=== PATIENT | female | born 1965 | race Caucasian/White ===

== ENCOUNTER → 2017-11-19 | Outpatient (CLI) | payer BC | LOC: MC.RAD 08:55 | DX: Z12.31 Encounter for screening mammogram for malignant neoplasm of breast (principal) ==

== ENCOUNTER 2018-03-25 14:44 | Outpatient (CLI) | payer BC ==
[~2018-03-25] VITALS: Ht 177.8 cm; Wt 95.5 kg
[2018-03-25] MEDS ORDERED: MULTI VITAMINS1 TAB PO (14:58)
[2018-03-25 14:59] VITALS: BP 144/59; PULSE 81; TEMP 98.6
[2018-03-25] MEDS ORDERED: ZYRTEC 10MG10 MG PO (14:59)
== END 2018-03-25 15:43 | disposition home or self-care (01) ==
LOC: EUO 14:44
DX: N39.0 Urinary tract infection, site not specified (principal)

== ENCOUNTER 2019-01-17 16:58 | Inpatient (IN) | payer BC ==
[~2019-01-17] VITALS: Ht 177.8 cm; Wt 90.9 kg
[~2019-01-17 16:58] MED LIST changes: -CEFTIN 250250 MG/TAB PO; -NORCO 325 MG-51 TAB PO; -PROTONIX 40MG T40 MG PO
[2019-01-17 17:17] VITALS: BP 144/74; PULSE 102; TEMP 97.7
[2019-01-17] MEDS ORDERED: NORCO 325 MG-51 TAB PO (17:31)
[2019-01-17] MEDS ORDERED: PROTONIX 40MG T40 MG PO (17:32)
[2019-01-17] MEDS ORDERED: CEFTIN 250250 MG/TAB PO (17:34)
--- NOTE | 2019-01-17 18:20 | NUR ---
pt admitted to room 349 from home. Pt has recent hx of colorectal, cervical, vaginal, uterine cancer. Had surgery a few weeks prior at [facility]. Developed intestinal infxn. recieving iv ABX and will reevaluate in AM for possible transfer back to [facility]. Pt has ileostomy that she manages herself. Pt is a/o x4. Independent in Room.
--- NOTE | 2019-01-17 18:50 | NUR ---
REPORT TO CECILIA PRICE.
[2019-01-17 19:04] LABS: BASO # 0.1 (0.0-0.2); BASO % 0.4 % (0.0-2.0); EOS # 0.1 (0.0-0.7); EOS % 0.7 % (0-4.0); GRAN % 83.9 % (42.2-75.2); HEMATOCRIT 37.5 % (37.0-47.0); HEMOGLOBIN 12.5 g/dl (12.5-16.0); LYMPH % 7.2 % (20.0-51.0); MEAN CELL VOLUME 99 fl (80.0-100.0); MEAN CORPUSCULAR HEMOGLOBIN 33 pg (27.0-31.0); MEAN CORPUSCULAR HGB CONC 33 g/dl (33.0-37.0); MONO # 0.9 (0.1-0.6); MONO % 6.7 % (1.7-9.3); PLATELET COUNT 540 K/mm3 (130-400); RED BLOOD COUNT 3.79 M/mm3 (4.10-5.30); REDCELL DISTRIBUTION WIDTH-CV 13.4 % (11.5-14.5)
[2019-01-17 19:19] LABS: ALBUMIN 4.1 gm/dL (3.5-5.0); BILIRUBIN,TOTAL 0.3 mg/dL (0.0-1.0); CALCIUM 10.5 mg/dL (8.4-10.2); CREATININE, serum 0.71 (0.52-1.25); POTASSIUM 4.5 mmol/L (3.4-5.0); TOTAL PROTEIN 8.5 gm/dL (6.4-8.2)
--- NOTE | 2019-01-17 20:00 | NUR ---
Shift assessment complete. Patient in bed, family at bedside. Pain 8/10 in abdomen. Pre-medicated with zofran d/t anticipatory nausea r/t pain meds. Prn pain medication given. Midline abdomen incision, intact, 33 samantha noted. Distal part of incision oozing clear drainage. Nonadherant pad, mepilex applied. Will continue to monitor. Ileostomy noted on RQ, patient manages. Patient also states that she would like her port accessed. Currently has a peripheral in left FA. Port will be accessed when RN is available, patient ok with plan. Denies further needs at this time. Will continue to monitor.
[2019-01-17 20:30] VITALS: BP 127/65; PULSE 95; TEMP 98.1
[2019-01-17 23:17] VITALS: BP 128/59; BP 128/75; PULSE 100; PULSE 86; TEMP 98; TEMP 98.5
--- NOTE | 2019-01-18 03:20 | NUR ---
Patient has been emptying ileostomy. Reports 1500ml. Documented under "colostomy" d/t ileostomy not being an option on the I&O. Gave graduated cylinder to patient to empty for accurate I&O.
[2019-01-18 03:38] VITALS: BP 121/60; PULSE 92; TEMP 98
--- NOTE | 2019-01-18 04:28 | NUR ---
Discussed with patient about accessing port. Patient declined access d/t no labs being ordered for today. States she will ask for her port to be accessed if she does not get sent to [facility] today. Denies further needs at this time. Will continue to monitor.
--- NOTE | 2019-01-18 07:19 | NUR ---
REPORT FROM WARREN PRICE.
[2019-01-18 07:30] VITALS: BP 122/46; PULSE 87
--- NOTE | 2019-01-18 09:25 | NUR ---
Initial visit; Patient thanked Head Char Filter Tank Tender for looking in on her and offering God's blessings and letting her know that she would be offered Holy Communion while she is a patient here.
--- NOTE | 2019-01-18 10:10 | NUR ---
ATILIO met with the patient and her Santos (Carlitos) to discuss a discharge plan. The pt lives in [place] with Carlitos. The pt does not have DME and reports independence with ADLs. The pt's PCP is Dr. Castañeda and receives her medications from [facility] with no difficulties. The pt does not have advanced directives in the EMR but does home them completed and designate her Carlitos. The pt plans to return home upon discharge. There are no additional needs at this time.
--- NOTE | 2019-01-18 10:18 | NUR ---
PT SITTING UP IN BED. INDEPENDENT IN ROOM. UP TO BR INDEPENDENTLY TO MAINTAIN ILEOSTOMY. DR. FITZGERALD IN TO SEE PATIENT SEE COMPUTER FOR NEW ORDERS.
[2019-01-18 11:44] VITALS: BP 129/63; PULSE 90; TEMP 98.7
[2019-01-18 16:15] VITALS: BP 109/59; PULSE 91; TEMP 98.8
--- NOTE | 2019-01-18 16:43 | NUR ---
pt called to report red drainage from ostomy, 200 mls liquid stool with red tinge. pt has recently advanced diet to clear liquids including red jello. She has had 2 cups of red jello. Asked pt to avoid red fluids for now and will continue to monitor. Also called Dr. Castañeda's nurse and informed her of pt's anxiety over red stools and that we would monitor and report if red stools continue. She will inform and staff should call contracts representative for practice tonight if having further issues.
--- NOTE | 2019-01-18 18:26 | NUR ---
FOLLOWED UP CONSULT WITH DR. ABDALLA AND NOTIFIED OF SM AMT OF BLOOD IN OSTOMY BAG. CBC IN AM AND HE WILL FOLLOW UP THEN.
[2019-01-18 19:17] VITALS: BP 115/54; PULSE 86; TEMP 98
[2019-01-18 23:50] VITALS: BP 120/71; PULSE 97; TEMP 98.3
--- NOTE | 2019-01-19 00:55 | NUR ---
Dr Javier notified of bright red blood to urostomy-total this shift 400mls. New orders received to draw CBC, PT/INR and call with results if less than 9.0. Lab notified of STAT labs. WIll monitor.
[2019-01-19 01:13] LABS: BASO % 0.5 % (0.0-2.0); EOS # 0.1 (0.0-0.7); EOS % 1.4 % (0-4.0); GRAN # 6.6 (1.4-6.5); GRAN % 79.4 % (42.2-75.2); LYMPH # 0.6 (1.2-3.4); LYMPH % 7.6 % (20.0-51.0); MEAN CELL VOLUME 101 fl (80.0-100.0); MEAN CORPUSCULAR HGB CONC 33 g/dl (33.0-37.0); MEAN PLATELET VOLUME 9.6 fl (7.4-10.4); MONO # 0.8 (0.1-0.6); MONO % 10.1 % (1.7-9.3); PLATELET COUNT 445 K/mm3 (130-400); RED BLOOD COUNT 3.03 M/mm3 (4.10-5.30); REDCELL DISTRIBUTION WIDTH-CV 13.3 % (11.5-14.5)
[2019-01-19 01:14] LABS: HEMATOCRIT 30.6 % (37.0-47.0); HEMOGLOBIN 10.2 g/dl (12.5-16.0); MEAN CORPUSCULAR HEMOGLOBIN 34 pg (27.0-31.0)
[2019-01-19 01:17] LABS: INR 1.1 (0.8-3.0); PROTHROMBIN TIME 13.3 SECONDS (9.7-12.8)
[2019-01-19 04:29] VITALS: BP 105/56; PULSE 86; TEMP 98.2
--- NOTE | 2019-01-19 06:16 | NUR ---
Rested off and on this shift. Had 400mls of bloody output to colostomy. Received IV meds for pain several times-rating 6/10-feels crampy. No n/v. Denies needs at this time. Will monitor.
--- NOTE | 2019-01-19 06:21 | NUR ---
Has rested off an on this shift. Had a total of approx 450mls bright red output to ileostomy. Pain meds administered regularly per dr order for abdominal pain rated 6/10-described as cramping. Denies N/V. Denies needs. WIll monitor.
[2019-01-19 07:30] LABS: BASO % 0.4 % (0.0-2.0); EOS # 0.1 (0.0-0.7); EOS % 1.5 % (0-4.0); GRAN # 5.7 (1.4-6.5); GRAN % 77.8 % (42.2-75.2); HEMOGLOBIN 10.1 g/dl (12.5-16.0); LYMPH # 0.6 (1.2-3.4); LYMPH % 8.4 % (20.0-51.0); MEAN CELL VOLUME 101 fl (80.0-100.0); MEAN CORPUSCULAR HEMOGLOBIN 33 pg (27.0-31.0); MEAN CORPUSCULAR HGB CONC 33 g/dl (33.0-37.0); MEAN PLATELET VOLUME 9.8 fl (7.4-10.4); MONO # 0.8 (0.1-0.6); PLATELET COUNT 463 K/mm3 (130-400); RED BLOOD COUNT 3.08 M/mm3 (4.10-5.30); REDCELL DISTRIBUTION WIDTH-CV 13.3 % (11.5-14.5)
[2019-01-19 07:42] LABS: HEMATOCRIT 31.1 % (37.0-47.0)
[2019-01-19 08:18] VITALS: BP 113/56; PULSE 86; TEMP 99
--- NOTE | 2019-01-19 08:30 | NUR ---
Dr Joseph was here to see the patient. He removed every other staple for the top 2/3rd's of the incision and removed all the samantha in the bottom incision. There was some purulent drainage on the lower part of the incision. Dr Joseph checked the inicsion for tunneling and did a wound culture. He packed the would with moist gauze and placed 4x4's over the open area. There is no drainage noted at this time. Patient tolerated well. She has some pain when the samantha were removed but did well otherwise. No other changes at this time. Call light within reach.
[2019-01-19 11:35] VITALS: BP 122/63; PULSE 91; TEMP 99.1
--- NOTE | 2019-01-19 12:30 | NUR ---
contacted to access implanted port. Patient reports she is tired of being stuck peripheral for vascular access. Nurses have attempted to access implanted port without success. Implanted port palpated. Injected with lidocaine 1 percent. Used 1" Beard needle and access port without difficulty. Port flushed with 10 mL normal saline with brisk good blood return noted. Skin prep and Tegaderm applied. Primary care nurse informed of access.
[2019-01-19 16:08] VITALS: BP 113/58; PULSE 94
--- NOTE | 2019-01-19 18:30 | NUR ---
Patient did well today. She walked in the hallways. She was able to take a shower. Pipo Clifford APRN is here to see patient and work with her on her ostomy. Patient has been getting morphine throughout the day for pain. Her IV in her left forearm stopped working earlier. Her port was accessed by [facility] services. Dr Castañeda's office called in a script for the patient to [facility], her is picking it up. No other changes at this time. Call light within reach.
[2019-01-19 20:40] VITALS: BP 123/61; PULSE 98; TEMP 99.6
[2019-01-19 23:02] VITALS: BP 142/60; PULSE 94; TEMP 98.3
[2019-01-20 04:17] VITALS: BP 125/63; PULSE 89; TEMP 98.6
--- NOTE | 2019-01-20 07:00 | NUR ---
Report received from DEE Downing. pT in bed resting, c/o pain when up ambulating, will provide PRN pain meds and continue to monitor.
[2019-01-20 08:03] VITALS: BP 126/61; PULSE 87; TEMP 98.2
--- NOTE | 2019-01-20 08:59 | NUR ---
Assessment charted. PT has sharp pains to midline and LLQ when ambulating that is new today. Called Dr. Javier, and patient talked to Dr. Castañeda on the phone and he will be in to see the patient shortly. Orders received. Dressing changed to lower midline drissing using to a wet to dry. Marva in tact no other drainage noted but there is redness to the area. PRN pain meds provided per request. PAC to TAMIE. Ileostomy has dark green liquid that patient is draining well. Will continue to monitor.
[2019-01-20 09:14] LABS: BASO % 0.4 % (0.0-2.0); EOS # 0.1 (0.0-0.7); EOS % 1.4 % (0-4.0); GRAN # 6.4 (1.4-6.5); GRAN % 79.1 % (42.2-75.2); LYMPH # 0.7 (1.2-3.4); LYMPH % 8.6 % (20.0-51.0); MEAN CELL VOLUME 101 fl (80.0-100.0); MEAN CORPUSCULAR HEMOGLOBIN 33 pg (27.0-31.0); MEAN CORPUSCULAR HGB CONC 33 g/dl (33.0-37.0); MEAN PLATELET VOLUME 10.1 fl (7.4-10.4); MONO # 0.8 (0.1-0.6); MONO % 10.1 % (1.7-9.3); PLATELET COUNT 477 K/mm3 (130-400); RED BLOOD COUNT 3.04 M/mm3 (4.10-5.30); REDCELL DISTRIBUTION WIDTH-CV 13.5 % (11.5-14.5)
[2019-01-20 09:19] LABS: CALCIUM 9.5 mg/dL (8.4-10.2); CREATININE, serum 0.53 (0.52-1.25); POTASSIUM 4.2 mmol/L (3.4-5.0)
[2019-01-20 12:30] VITALS: BP 117/46; PULSE 100; TEMP 98.1
--- NOTE | 2019-01-20 13:01 | NUR ---
Discharge teaching completed at this time. PT received dischage packet, Dr. Castañeda's office will call tomorrow with a follow up appointment. Pt received paper script for new muscle relaxer. Gave patient supplies for changing ostomy as needed, adhesive tape removal wipes, skin barrier wipes for ostomy. Supplies for BID dressing changes to midline that is dehisced given are: sterile NS, gauze 2x2s, gauze 4x4s, paper tape, sterile cotton tip applicators. Portacath to TAMIE deaccessed after heparinizing. Discharge packet reviewed adn all questions answered. PT escorted out via wheelchair with all belongings, to drive home. Criteria met.
== END 2019-01-20 12:50 | disposition home or self-care (01) | DRG 863 ==
LOC: SURG 16:58
PROVIDERS: Surgery; ADMIT Family Medicine
DX: T81.40XA Infection following a procedure, unspecified, initial encounter (principal); A09 Infectious gastroenteritis and colitis, unspecified; K56.699 Other intestinal obstruction unspecified as to partial versus complete obstruction; T81.41XA Infection following a procedure, superficial incisional surgical site, initial encounter; Z98.0 Intestinal bypass and anastomosis status; Z87.891 Personal history of nicotine dependence; Z93.2 Ileostomy status; M62.838 Other muscle spasm; Z88.1 Allergy status to other antibiotic agents; Z85.048 Personal history of other malignant neoplasm of rectum, rectosigmoid junction, and anus; Z85.42 Personal history of malignant neoplasm of other parts of uterus
CPT/HCPCS: J0295; J2270; J2405; J7030; Q9967

== ENCOUNTER → 2019-01-17 | Outpatient (CLI) | payer BC ==
[~2019-01-17] MED LIST: CEFTIN 250250 MG/TAB PO; MULTI VITAMINS1 TAB PO; NORCO 325 MG-51 TAB PO; PROTONIX 40MG T40 MG PO; ZYRTEC 10MG10 MG PO
== END ==
LOC: COL.RAD 15:17
DX: K56.690 Other partial intestinal obstruction (principal); K59.8 Other specified functional intestinal disorders; K57.30 Diverticulosis of large intestine without perforation or abscess without bleeding; G89.18 Other acute postprocedural pain; Z90.710 Acquired absence of both cervix and uterus; Z98.890 Other specified postprocedural states
CPT/HCPCS: Q9967

== ENCOUNTER → 2019-04-28 | Outpatient (CLI) | payer BC ==
[~2019-04-28] MED LIST changes: +CEFTIN 250250 MG/TAB PO; +NORCO 325 MG-51 TAB PO; +PROTONIX 40MG T40 MG PO
== END ==
LOC: COL.RAD 10:37
DX: K57.30 Diverticulosis of large intestine without perforation or abscess without bleeding (principal); K82.0 Obstruction of gallbladder; Z98.890 Other specified postprocedural states
CPT/HCPCS: Q9967

== ENCOUNTER 2019-05-03 10:03 | Outpatient (RCR) | payer BC ==
[~2019-05-03] VITALS: Ht 177.8 cm; Wt 89.6 kg
[2019-05-03] VITALS (11 sets, daily range): BP systolic 102–126; BP diastolic 35–65; PULSE 84–96; TEMP 97.9–99.4
[2019-05-03] MEDS ORDERED: MAG-OX 400400 MG/TAB PO (10:23)
[2019-05-03] MEDS ORDERED: PROTONIX 40MG T40 MG PO (10:23)
== END 2019-05-03 17:11 | disposition home or self-care (01) ==
LOC: EUO 10:03
DX: C20 Malignant neoplasm of rectum (principal); D64.81 Anemia due to antineoplastic chemotherapy
CPT/HCPCS: J1644; J7050; P9016

== ENCOUNTER → 2019-05-23 | Outpatient (CLI) | payer BC ==
[~2019-05-23] MED LIST changes: +MAG-OX 400400 MG/TAB PO
== END ==
LOC: MC.RAD 15:04
DX: Z12.31 Encounter for screening mammogram for malignant neoplasm of breast (principal)

== ENCOUNTER 2019-07-15 17:44 | Inpatient (IN) | payer BC ==
[~2019-07-15] VITALS: Ht 177.8 cm; Wt 84.8 kg
[2019-07-15 19:07] LABS: BASO % 0.3 % (0.0-2.0); EOS # 0.1 (0.0-0.7); GRAN # 9.3 (1.4-6.5); GRAN % 80.7 % (42.2-75.2); HEMOGLOBIN 11.6 g/dl (12.5-16.0); MEAN CELL VOLUME 109 fl (80.0-100.0); MEAN CORPUSCULAR HEMOGLOBIN 36 pg (27.0-31.0); MEAN CORPUSCULAR HGB CONC 33 g/dl (33.0-37.0); MEAN PLATELET VOLUME 10.9 fl (7.4-10.4); MONO # 0.9 (0.1-0.6); MONO % 7.8 % (1.7-9.3); PLATELET COUNT 414 K/mm3 (130-400); RED BLOOD COUNT 3.23 M/mm3 (4.10-5.30); REDCELL DISTRIBUTION WIDTH-CV 16.6 % (11.5-14.5)
[2019-07-15 19:09] LABS: HEMATOCRIT 35.3 % (37.0-47.0)
[2019-07-15 19:13] LABS: ALBUMIN 4.3 gm/dL (3.5-5.0); BILIRUBIN,TOTAL 0.6 mg/dL (0.0-1.0); C-REACTIVE PROTEIN 3.8 mg/dL (0.0-0.9); CALCIUM 9.7 mg/dL (8.4-10.2); CREATININE, serum 0.85 (0.52-1.25); POTASSIUM 3.4 mmol/L (3.4-5.0); TOTAL PROTEIN 8.1 gm/dL (6.4-8.2)
--- NOTE | 2019-07-15 21:50 | NUR ---
RECEIVED PATIENT FROM ED PER CART. IS ALERT AND ORIENTED X4. AMBULATES FROM CART TO BED WITH STEADY GAIT.
[2019-07-15 21:52] VITALS: BP 134/69; PULSE 97; TEMP 98.5
[2019-07-15] MEDS ORDERED: ZOFRAN ODT4 MG PO (22:17)
--- NOTE | 2019-07-15 22:48 | NUR ---
SPOKE WITH DR ABDALLA REGARDING PATIENT REQUEST FOR PEPCID OR PROTONIX. NEW ORDER FOR PROTONIX GIVEN AND ADMINISTERED AT THIS TIME. ALSO MEDICATED WITH DILAUDID 0.5MG IV NOW FOR PAIN/CRAMPING 12/27. HAS LEFT PORT ACCESSED WITH LR INFUSING AT 75CC/HR. SCDS ON BILATERAL LOWER LEGS.
[2019-07-15 23:29] VITALS: BP 125/62; PULSE 95; TEMP 98.5
--- NOTE | 2019-07-16 00:44 | NUR ---
Medicated with Zofran 4mg IVP and Dilaudid 0.5mg IVP for nausea and pain to abdomen.
--- NOTE | 2019-07-16 03:29 | NUR ---
PATIENT REPORTS BEING UP TO BATHROOM, HAS MODERATE LOOSE STOOL AND VOIDS. MEDICATED AT THIS TIME FOR PAIN TO ABDOMEN 12/27 WITH DILAUDID 0.5MG IVP.
[2019-07-16 03:32] VITALS: BP 132/70; PULSE 97; TEMP 98.3
--- NOTE | 2019-07-16 05:39 | NUR ---
MEDICATED WITH DILAUDID 0.5MG IVP FOR PAIN TO ABDOMEN. REPORTS PAIN IS MUCH IMPROVED FROM LAST NIGHT.
[2019-07-16 07:51] VITALS: BP 98/52; PULSE 91; TEMP 98.4
[2019-07-16 08:08] LABS: MEAN CELL VOLUME 111 fl (80.0-100.0); MEAN CORPUSCULAR HGB CONC 32 g/dl (33.0-37.0); MEAN PLATELET VOLUME 10.6 fl (7.4-10.4); RED BLOOD COUNT 2.54 M/mm3 (4.10-5.30); REDCELL DISTRIBUTION WIDTH-CV 16.6 % (11.5-14.5)
[2019-07-16 08:21] LABS: CALCIUM 8.5 mg/dL (8.4-10.2); CREATININE, serum 0.62 (0.52-1.25)
[2019-07-16 08:48] LABS: HEMATOCRIT 28.3 % (37.0-47.0); MEAN CORPUSCULAR HEMOGLOBIN 36 pg (27.0-31.0)
[2019-07-16 08:49] LABS: HEMOGLOBIN 9.1 g/dl (12.5-16.0); PLATELET COUNT 282 K/mm3 (130-400)
[2019-07-16 11:39] VITALS: BP 115/70; PULSE 89; TEMP 97.3
--- NOTE | 2019-07-16 15:20 | NUR ---
Contacted Dr. Javier, patient having gas pain. New order for simethicone entered.
[2019-07-16 16:24] VITALS: BP 119/60; PULSE 87; TEMP 97.7
--- NOTE | 2019-07-16 18:24 | NUR ---
Patient has done well throughout the day. Independent in room. Patient having frequent loose stools. States abdominal cramping better with BM. Fluids infusing per orders. Denies further needs at this time. Will report off to mechanical supervisor.
[2019-07-16 19:49] VITALS: BP 110/66; PULSE 90; TEMP 97.8
[2019-07-16 23:41] VITALS: BP 107/48; PULSE 90; TEMP 98.3
[2019-07-17 02:05] LABS: COLLECTION METHOD CLEAN CATCH
[2019-07-17 02:23] LABS: MUCOUS Present /lpf; PH 6 (5-8); SQUAMOUS EPITHELIAL 0-2 /hpf; URINE APPEARANCE Hazy; URINE BACTERIA None Seen /hpf; URINE BILIRUBIN Negative (NEGATIVE); URINE BLOOD 1+ (NEGATIVE); URINE COLOR Yellow; URINE GLUCOSE Negative (NEGATIVE); URINE KETONE Negative (NEGATIVE); URINE LEUKOCYTE ESTERASE 2+ (NEGATIVE); URINE NITRATE Negative (NEGATIVE); URINE PROTEIN(semi-quant) Negative (NEGATIVE); URINE UROBILINOGEN Negative (NEGATIVE)
[2019-07-17 04:21] VITALS: BP 113/57; PULSE 88; TEMP 97.8
--- NOTE | 2019-07-17 05:56 | NUR ---
PT MEDICATED WITH OXYCODONE APPROX. Q 4 HOURS FOR ABDOMINAL DISCOMFORT. PT DENIED N/V.
[2019-07-17 07:01] LABS: BASO % 0.3 % (0.0-2.0); EOS # 0.1 (0.0-0.7); EOS % 1.7 % (0-4.0); GRAN # 5.9 (1.4-6.5); GRAN % 82.1 % (42.2-75.2); LYMPH # 0.5 (1.2-3.4); LYMPH % 6.9 % (20.0-51.0); MEAN CELL VOLUME 111 fl (80.0-100.0); MEAN CORPUSCULAR HGB CONC 32 g/dl (33.0-37.0); MEAN PLATELET VOLUME 10.5 fl (7.4-10.4); MONO # 0.6 (0.1-0.6); MONO % 7.9 % (1.7-9.3); PLATELET COUNT 275 K/mm3 (130-400); REDCELL DISTRIBUTION WIDTH-CV 16.3 % (11.5-14.5)
[2019-07-17 07:04] LABS: HEMATOCRIT 27.8 % (37.0-47.0); MEAN CORPUSCULAR HEMOGLOBIN 36 pg (27.0-31.0)
[2019-07-17 07:15] LABS: CALCIUM 8.6 mg/dL (8.4-10.2); CREATININE, serum 0.54 (0.52-1.25)
[2019-07-17 08:05] VITALS: BP 103/50; PULSE 82; TEMP 98.6
--- NOTE | 2019-07-17 09:03 | NUR ---
Patient sitting in bed upon assessment. Having intermittent cramping abdominal pain between her belly button and breast bone. Patient is hopeful to have another bowel movement and pass some gas this morning after taking a shower and walking around. Roxicodone and dilaudid given for pain. Patient states that when the pain gets to a certain point she has a hard time relaxing and being able to pass gas to relieve the pain. Patient is hopeful for discharge in the next day or so. Has no further concerns at this time. Call light in reach.
[2019-07-17 11:46] VITALS: BP 114/61; PULSE 87; TEMP 98.4
--- NOTE | 2019-07-17 12:27 | NUR ---
Plan: T return home with Carlitos as care support . Patient also wanted to list daughter Anne Marie as care support and EMR . Per patient DPOA is also and daughter. Patient resides in [facility]. Assess: SW met with patient and daughter. patient did give permission to discuss information while family was present. Patient denied the use of DME, and reports complete independence at home. Patient reports that her PCP is Dr. Reid and Dr. Gold, with her previous appt being this past Thursday. PAtient reports she gets her medications from [facility] with no concerns. Patient denied having any care concerns, and the need for HHS at this time. Action: No additional concerns identified. Patient was educated on community resources and supports.
[2019-07-17 16:43] VITALS: BP 120/68; PULSE 92; TEMP 98
--- NOTE | 2019-07-17 18:19 | NUR ---
Patient continues to have cramping abdominal pain throughout shift. Dilaudid gives best relief. Episode of nausea this afternoon. Zofran provided minimal relief. Patient states she feels like nothing is digesting. Dulcolax suppository given with no results. Patient is continuing to pass flatus which helps to provide relief of the cramping pain.
[2019-07-17 21:00] VITALS: BP 113/64; PULSE 94; TEMP 97.8
--- NOTE | 2019-07-18 | NUR ---
PT HAD SMALL B.M. AFTER SUPPOSITORY.
[2019-07-18 04:07] VITALS: BP 132/70; PULSE 95; TEMP 97.6
--- NOTE | 2019-07-18 05:00 | NUR ---
PT REPORTED SHE'S HAD SEVERAL LOOSE BOWEL MOVEMENTS DURING THE NIGHT AND IS, OVERALL, FEELING MUCH BETTER.
[2019-07-18 06:25] LABS: CALCIUM 8.5 mg/dL (8.4-10.2); CREATININE, serum 0.64 (0.52-1.25)
[2019-07-18 07:36] VITALS: BP 127/67; PULSE 92; TEMP 98.5
--- NOTE | 2019-07-18 10:00 | NUR ---
Patient alert and oriented, answers questions appropriately. See assessment. Abdomen rounded, tender in upper quads. Bowel sounds active x4 quads. +Flatus, +Bowel movement. Previous ostomy site with scant amount of drainage noted. PAC to right chest wall accessed and infusing IVF, no redness or drainage noted. No c/o at this time.
[2019-07-18 12:39] VITALS: BP 133/66; PULSE 90; TEMP 97.3
[2019-07-18 13:14] LABS: BILIRUBIN,TOTAL 0.2 mg/dL (0.0-1.0); CALCIUM 8.5 mg/dL (8.4-10.2); CREATININE, serum 0.63 (0.52-1.25); MAGNESIUM 1.4 mg/dL (1.6-2.3); PHOSPHOROUS 4.5 mg/dL (2.5-4.5); TOTAL PROTEIN 6.1 gm/dL (6.4-8.2)
[2019-07-18 14:22] LABS: PRE ALBUMIN 11.8 mg/dL (17.6-36.0)
[2019-07-18 16:27] VITALS: BP 114/60; PULSE 81; TEMP 98.1
--- NOTE | 2019-07-18 20:30 | NUR ---
Patient report received from DEE Cardenas at bedside during shift change. Upon assessment at this time patient is resting comfortably. Reports intermittent cramping pain to her abd, rating at 5/10. Patient states that she has been having frequent liquid stools this evening, approximately every 20-30 minutes. TPN infusing throught left subclavian PAC. Patient ordered a full liquid diet, reports trying some jello and sprite this evening. Dressing to [facility].
[2019-07-18 22:59] VITALS: BP 110/59; PULSE 85; TEMP 97.4
[2019-07-19 00:29] VITALS: BP 117/50; PULSE 82; TEMP 98.3
[2019-07-19 03:39] VITALS: BP 118/61; PULSE 83; TEMP 98
--- NOTE | 2019-07-19 07:29 | NUR ---
Patient report given to DEE Fernandez. Patient sitting up in bed eating breakfast. Blood draw completed from R chest PAC.
[2019-07-19 07:40] VITALS: BP 110/53; PULSE 77; TEMP 98.1
--- NOTE | 2019-07-19 08:00 | NUR ---
Patient in bed resting. Alert and oriented x 3. Shift assessment complete. Previous ostomy site with scant drainge noted. Patient states she is passing gas and having bowel movements. Eating breakfast and states she is feeling well today. TPN infusing per orders to port. Denies further needs at this time.
[2019-07-19 08:08] LABS: CALCIUM 8.7 mg/dL (8.4-10.2); CREATININE, serum 0.65 (0.52-1.25); MAGNESIUM 1.8 mg/dL (1.6-2.3); PHOSPHOROUS 3.6 mg/dL (2.5-4.5); POTASSIUM 4.2 mmol/L (3.4-5.0)
--- NOTE | 2019-07-19 11:00 | NUR ---
Patient called out to nurses station. states she is having severe abdominal pain with cramping. States that is is like when she first came into the hospital. Requests dilaudid be given, medication given per orders.
[2019-07-19 11:20] VITALS: BP 115/58; PULSE 81; TEMP 98
--- NOTE | 2019-07-19 13:51 | NUR ---
First visit from the charge aide. Gas Furnace Installer told patient he would check on communion. No other needs right now.
[2019-07-19 15:31] VITALS: BP 96/60; PULSE 83; TEMP 98.4
--- NOTE | 2019-07-19 17:05 | NUR ---
Patient has done well. Minimal needs. TPN infusing per orders. States she has been up and eating saltine crackers, tolerating without cramping or pain, states she thinks abdominal pain may be related to lactose. States she is doing well with diet otherwise but this AM all she had for breakfast was hot chocolate and yogurt. Denies further needs at this. Reported off to Edwige PRICE.
[2019-07-19 20:11] VITALS: BP 123/61; PULSE 82; TEMP 97.5
--- NOTE | 2019-07-19 20:13 | NUR ---
Medicated with Oxycodone 5mg po for pain to abdomen 5/10. Is alert and oriented x4. Has TPN infusing to left Port without problem. Old ileostomy site to right abd dry, no dressing on. Having loose stools, does not want the dulcolax suppos.
--- NOTE | 2019-07-19 22:02 | NUR ---
Medicated with Dilaudid 0.5mg IVP for cramping to abdomen.
[2019-07-20] VITALS (7 sets, daily range): BP systolic 107–135; BP diastolic 52–73; PULSE 80–92; TEMP 98.1–98.6
--- NOTE | 2019-07-20 04:14 | NUR ---
Pt awake, reports mild discomfort to abdomen, medicated with scheduled ES Tylenol and Oxycodone 5mg po now. Denies loose stools this shift. Voiding without problem.
--- NOTE | 2019-07-20 06:00 | NUR ---
Denies need for pain meds at this time. Up ad ida in the room. No diarrhea stools this shift.
[2019-07-20 06:31] LABS: BASO % 0.3 % (0.0-2.0); EOS # 0.1 (0.0-0.7); EOS % 1.7 % (0-4.0); GRAN # 4.6 (1.4-6.5); GRAN % 78.6 % (42.2-75.2); LYMPH # 0.6 (1.2-3.4); LYMPH % 9.6 % (20.0-51.0); MEAN CELL VOLUME 110 fl (80.0-100.0); MEAN CORPUSCULAR HGB CONC 32 g/dl (33.0-37.0); MEAN PLATELET VOLUME 10.5 fl (7.4-10.4); MONO # 0.5 (0.1-0.6); MONO % 9.3 % (1.7-9.3); PLATELET COUNT 325 K/mm3 (130-400); RED BLOOD COUNT 2.77 M/mm3 (4.10-5.30); REDCELL DISTRIBUTION WIDTH-CV 16.1 % (11.5-14.5)
[2019-07-20 06:36] LABS: HEMATOCRIT 30.4 % (37.0-47.0); HEMOGLOBIN 9.7 g/dl (12.5-16.0); MEAN CORPUSCULAR HEMOGLOBIN 35 pg (27.0-31.0)
[2019-07-20 06:47] LABS: CALCIUM 8.8 mg/dL (8.4-10.2); CREATININE, serum 0.63 (0.52-1.25); MAGNESIUM 1.9 mg/dL (1.6-2.3); PHOSPHOROUS 4.5 mg/dL (2.5-4.5); POTASSIUM 4.4 mmol/L (3.4-5.0)
[2019-07-20 06:54] LABS: PRE ALBUMIN 11.9 mg/dL (17.6-36.0)
--- NOTE | 2019-07-20 08:00 | NUR ---
Patient in bed resting. Alert and oriented x 3. Shift assessment complete. TPN infusing per orders to left chest port. Tolerating clear liquids, states she feels well this AM. Denies further needs at this time.
--- NOTE | 2019-07-20 09:40 | NUR ---
Patient called out to nurses station, had emisis after breakfast. Zofran given per orders.
--- NOTE | 2019-07-20 12:30 | NUR ---
Patient called out to nurses station, requests pain medication for abdominal pain 02/26. Cramping. Medications given per orders. Denies further needs at this time.
--- NOTE | 2019-07-20 17:52 | NUR ---
Patient has done well throughout the day. Minimal need. Requests pain medication for abdominal cramping, medications given per orders. Requested zofran this afternoon for nausea. Ambulated in wick with spouse. Showered this AM. Tolerating small amounts of clear liquids throughout the day. Denies further needs at this time. Will report off to asbestos cement sheet supervisor.
--- NOTE | 2019-07-20 20:38 | NUR ---
Reported off to Veronica RN
--- NOTE | 2019-07-20 21:17 | NUR ---
PATIENT REPORTS MODERATE ABDOMINAL CRAMPS. MEDICATED WITH DILAUDID 0.5MG IVP AT THIS TIME. ABDOMEN DISTENDED, FIRM, TYMPANIC. OLD RT ILEOSTOMY SITE IS DRY AND OPEN TO AIR. REPORTS SEVERAL LOOSE STOOLS TODAY. HAS HAD EMESIS TODAY ALSO AND NOT EATING ANYTHING SOLID. TPN INFUSING TO LEFT PORT WITHOUT PROBLEM. FEELING NAUSEATED, TOO SOON FOR ZOFRAN.
--- NOTE | 2019-07-20 22:50 | NUR ---
MEDICATED WITH ZOFRAN 4MG IVP AND SCHEDULED ES TYLENOL. PATIENT HAD 200CC OF BILE EMESIS.
--- NOTE | 2019-07-21 03:23 | NUR ---
PATIENT UP AMBULATING IN HALLWAY, REPORTS LARGE STOOL REQUIRING HER TO SHOWER. NEW SUPPLIES OF ATTENDS AND SOCKS PROVIDED.
[2019-07-21 04:33] VITALS: BP 114/62; PULSE 90; TEMP 98.4
--- NOTE | 2019-07-21 04:38 | NUR ---
Medicated with Zofran 4mg IVP. Did not want the ES Tylenol at this time.
[2019-07-21 07:21] LABS: CALCIUM 8.7 mg/dL (8.4-10.2); CREATININE, serum 0.63 (0.52-1.25); MAGNESIUM 1.8 mg/dL (1.6-2.3); PHOSPHOROUS 4.3 mg/dL (2.5-4.5); POTASSIUM 4.4 mmol/L (3.4-5.0)
--- NOTE | 2019-07-21 08:00 | NUR ---
Patient in bed resting. Alert and oriented x 3. Shift assessment complete. TPN infusing per orders to PAC. States mild abdominal cramping. States she is trying to stay away from pain medications today. Denies further needs at this time.
[2019-07-21 08:03] VITALS: BP 106/54; PULSE 94; TEMP 97.9
--- NOTE | 2019-07-21 09:04 | NUR ---
Patient down for CT.
--- NOTE | 2019-07-21 09:14 | NUR ---
Patient back from CT
--- NOTE | 2019-07-21 10:42 | NUR ---
SW met with the patient to revisit the discharge plan. The patient plans to return home. The patient's nurse reports the patient is completely independent.
[2019-07-21 11:36] VITALS: BP 113/50; PULSE 96; TEMP 97.8
[2019-07-21 16:29] VITALS: BP 119/49; PULSE 94; TEMP 98.4
--- NOTE | 2019-07-21 18:23 | NUR ---
Patient has done well throughout the day, minimal needs. Has been up ambulating in halls throughout the day. Continues to have diarrhea throughout the day. Denies further needs at this time. Will report off to night order selector.
--- NOTE | 2019-07-21 19:25 | NUR ---
Lying in bed with eyes open. Patient says that she is having some reflux maybe nausea and would like Zofran. Will administer at this time. Patient would not like the dulcolax suppository as she has watery diarrhea. Incision to right abd with edges well approximated, no redness/edema/or discharge. Port a cath to left upper chest without redness, drainage, or edema. TPN infusing at 68mL/hr. Patient denies further needs.
[2019-07-21 19:46] VITALS: BP 122/56; PULSE 90; TEMP 98.4
[2019-07-21 23:36] VITALS: BP 113/56; PULSE 96; TEMP 98.5
[2019-07-22] VITALS (7 sets, daily range): BP systolic 100–147; BP diastolic 44–63; PULSE 64–107; TEMP 97.6–98.9
--- NOTE | 2019-07-22 01:51 | NUR ---
Patient requests Zofran for uneasy stomach. Administered as prescribed. Patient denies further needs at this time.
--- NOTE | 2019-07-22 03:45 | NUR ---
Lying in bed in supine position with eyes closed. Opens eyes when name called out. Rates pain in right abd 4/10 and describes as a burn/ache. Offered scheduled Tylenol and the patient declines and explains that it makes her stomach feel worse. Denies need for pain meds at this time. Denies any further concerns or needs. TPN continues to infuse at 68mL/hr.
--- NOTE | 2019-07-22 06:10 | NUR ---
Lying in bed with eyes open. Having mild pain in right abd, describes as an ache. Up to bathroom on own. Denies needs at this time.
[2019-07-22 07:17] LABS: CALCIUM 8.8 mg/dL (8.4-10.2); CREATININE, serum 0.63 (0.52-1.25); PHOSPHOROUS 4.4 mg/dL (2.5-4.5); POTASSIUM 4.1 mmol/L (3.4-5.0)
--- NOTE | 2019-07-22 07:25 | NUR ---
Report from Tawnya PRICE.
--- NOTE | 2019-07-22 10:28 | NUR ---
PT UP INDEPENDENTLY IN ROOM. SHOWERED AND RETURNED TO BED. DR TANNER IN TO SEE PATIENT THIS AM. SEE COMPUTER FOR NEW ORDERS.
--- NOTE | 2019-07-22 13:53 | NUR ---
PT REFUSING DVT PROPHALAXIS. PT ALSO REFUSING TPN.
[2019-07-23 03:57] VITALS: BP 123/59; PULSE 86; TEMP 97.9
--- NOTE | 2019-07-23 04:48 | NUR ---
Patient rested well throughout the night. Denies pain. Refuses scheduled tylenol. Requests PRN Zofran be given every 6 hours to keep nausea at bay. No nausea noted overnight. Patient tolerated supplemental drink at HS. Port to left upper chest flushes with ease and blood return noted. Will continue to monitor patient.
--- NOTE | 2019-07-23 08:00 | NUR ---
Patient reports she has been having several episodes of forceful loose stools last night and this morning. Patient states that it is becoming so frequent that she is having trouble with continence and requests lopirimide, informed patient that request would be passed on to provider. Patient denies needs at this time, call light within reach.
[2019-07-23 08:10] VITALS: BP 121/66; PULSE 93; TEMP 98
[2019-07-23 11:20] VITALS: BP 94/46; PULSE 96; TEMP 98.2
[2019-07-23 16:28] VITALS: BP 117/60; PULSE 89; TEMP 98.7
[2019-07-23 19:31] VITALS: BP 108/58; PULSE 80; TEMP 97.9
--- NOTE | 2019-07-23 20:00 | NUR ---
Report received. Assumed care for client support analyst. A&Ox3. Assessment complete. VS stable. Denies pain/shortness of breath/nausea. Tolerating diet. States she has been having loose to liquid stools all day-finally slowing now. Discussed plan of care for this shift to include HS meds, PRN meds and calling for questions/concerns. Verbalizes understanding. Up to ambulate in halls. Denies needs. Call light in reach. Bed in low/wheels locked. WIll monitor.
[2019-07-23 23:51] VITALS: BP 101/52; PULSE 79; TEMP 97.9
[2019-07-24 04:00] VITALS: BP 103/54; PULSE 74; TEMP 97.7
--- NOTE | 2019-07-24 06:10 | NUR ---
Rested well this shift. Denies pain/shortness of breath/nausea. States she is still nervous to eat without taking Zofran prior-requesting now. AM lab draw complete. Up to ambulate in halls. Tolerating PO-No epidsodes of loose stools this shift. Call light in reach.
[2019-07-24 08:15] VITALS: BP 87/37; PULSE 82; TEMP 97.8
--- NOTE | 2019-07-24 10:00 | NUR ---
Patient ambulating in hallways this morning, states she is feeling much better. Patient showered independently this morning and denies nausea or pain. Patient states that she has not had episodes of loose stools this morning. Patient denies needs at this time, call light within reach.
[2019-07-24 11:58] VITALS: BP 98/49; PULSE 80; TEMP 98
--- NOTE | 2019-07-24 17:48 | NUR ---
Discharge teaching completed. Discussed discharge instructions and keeping follow up appointment as previously scheduled with surgeon in [place]. Instructed patient to call [facility] office if she had any questions or needs in the interim. Patient verbalized understanding. Port de accessed by DEE Freire. Patient escorted to ED entrance where she entered a private vehicle.
== END 2019-07-24 17:43 | disposition home or self-care (01) | DRG 395 ==
LOC: COL.ER 17:44 → SURG 20:49
PROVIDERS: Physician Assistant; Surgery; ADMIT Surgery
PROC: 3E0336Z Introduction of Nutritional Substance into Peripheral Vein, Percutaneous Approach (ICD-10-PCS; principal; 2019-07-15)
DX: K91.858 Other complications of intestinal pouch (principal); K62.4 Stenosis of anus and rectum; Y83.2 Surgical operation with anastomosis, bypass or graft as the cause of abnormal reaction of the patient, or of later complication, without mention of misadventure at the time of the procedure; K21.9 Gastro-esophageal reflux disease without esophagitis; Z90.710 Acquired absence of both cervix and uterus; Z90.49 Acquired absence of other specified parts of digestive tract; Z85.048 Personal history of other malignant neoplasm of rectum, rectosigmoid junction, and anus
CPT/HCPCS: A4217; C9113; J0610; J1170; J1650; J2405; J3411; J3475; J3480; J7030; J7120; J7131; Q9967

== ENCOUNTER 2020-04-08 17:48 | Emergency (ER) | payer BC ==
[~2020-04-08] VITALS: Ht 177.8 cm; Wt 90.9 kg
[~2020-04-08 17:48] MED LIST changes: +ZOFRAN ODT4 MG PO
[2020-04-08 18:04] VITALS: TEMP 99
[2020-04-08] MEDS ORDERED: PERCOCET 325 MG1 TA2 PO (21:18)
[2020-04-08 21:30] VITALS: BP 166/100; PULSE 56
== END 2020-04-08 21:30 | disposition home or self-care (01) ==
LOC: COL.ER 17:48
DX: S92.251A Displaced fracture of navicular [scaphoid] of right foot, initial encounter for closed fracture (principal); Z87.891 Personal history of nicotine dependence; W18.42XA Slipping, tripping and stumbling without falling due to stepping into hole or opening, initial encounter; X50.1XXA Overexertion from prolonged static or awkward postures, initial encounter
CPT/HCPCS: Q4045

== ENCOUNTER → 2020-07-19 | Outpatient (CLI) | payer BC ==
[~2020-07-19] MED LIST changes: +PERCOCET 325 MG1 TA2 PO
== END ==
LOC: MC.RAD 08:45
DX: C20 Malignant neoplasm of rectum (principal); Z12.31 Encounter for screening mammogram for malignant neoplasm of breast

== ENCOUNTER → 2021-02-12 | Outpatient (CLI) | payer BC | LOC: COL.RAD 09:10 | DX: C20 Malignant neoplasm of rectum (principal); Z90.710 Acquired absence of both cervix and uterus | CPT/HCPCS: Q9967 ==

== ENCOUNTER 2023-07-17 06:25 | Day surgery (SDC) | payer BC ==
[2023-07-17] VITALS (7 sets, daily range): BP systolic 118–137; BP diastolic 63–71; PULSE 78–95; TEMP 97–97.3
[~2023-07-17] VITALS: Ht 177.8 cm; Wt 94.5 kg
[2023-07-17] MEDS ORDERED: PROBIOTIC-10 370 MG PO (07:13)
[2023-07-17] MEDS ORDERED: CYMBALTA 30MG30 MG PO (07:13)
[2023-07-17] MEDS ORDERED: PREDFORTE5ML (07:14)
--- NOTE | 2023-07-17 08:08 | NUR ---
Written order received to give LR 1000ml IV and Pepcid 20 mg IV. Pt medicated per order. seed cutter "locked" at this time. IT aware and working to correct issue.
--- NOTE | 2023-07-17 08:14 | NUR ---
0646 Pt ambulatory to bay 3 with steady gait and unlabored breathing. Pt is alert and oriented, accompanied today by her . Consent reviewed and signed by pt. IV established. LR infusing via gravity at KVO. Call light in reach. Warm blanket declined.
[2023-07-17] MEDS ORDERED: NORCO 325 MG-51 TAB PO (11:13)
--- NOTE | 2023-07-17 20:19 | NUR ---
1220: PT TO RECOVERY BAY 3 FROM PACU S/P ROBOTIC INCISIONAL HERNIA REPAIR, WITH MULTIPLE ADHESION LYSIS L&O, PLACED ON MONITOR, VSS ON 1L NC, QUICKLY WEANED TO RA RECEIVED REPORT AND ASSUMED CARE OF PT FROM RN RUPESH SPOUSE AT BEDSIDE. PT HAS BEEN HAVING SIGNIFICANT PAIN POST-OP AND HAS BEEN TREATED FOR SAME IN PACU. REPORTS PAIN IS TOELRABLE AT REST UPON ARRIVAL. ABDOMINAL BINDER IN PLACE, 4 TROCAR SITES UNDERNEATH CLOSED WITH GLUE AND CDI PT ED ON NONPHARM ADJUNCTS FOR PAIN MGMT/SPLINTING, ETC PT/ VERBALIZED UNDERSTANDING PROVIDED FLUIDS/FOOD, TOLERATING WELL 1300 1MG DILAUDID IVP GIVEN FOR SEVERE (8/10), FREQUENT AND INCREASING ABD PAIN. TOLERATED WELL, EFFECTIVE, PT REMAINS A&L, VSS ON RA. 1340 PAIN REMAINS MODERATE AND TOLERABLE, BUT PERSISTENT - PT GIVEN NORCO 5 PO FOR SAME AND ANTICIPATORY INCREASE WHEN TRANSPORTING HOME. PT HAS REMAINED A&O, NAD, VSS ON RA, TOLERATING PO, IS NOW WITHOUT SIGNIFICANT COMPLAINT, WITH STEADY GAIT BY END OF STAY 1350 IV D/C'D. D/C INSTRUCTIONS, FOLLOW UP REVIEWED AND HANDED TO PT. ALL QUESTIONS AND CONCERNS ADDRESSED TO PT SATISFACTION. 1405 TAKEN TO EXIT VIA W/C WITH ALL BELONGINGS AND PAPERWORK IN HAND, ASSISTED INTO PASSENGER SEAT OF POV. SPOUSE TO DRIVE HOME.
== END 2023-07-17 14:05 | disposition home or self-care (01) ==
LOC: SDCO 06:25
DX: K43.2 Incisional hernia without obstruction or gangrene (principal); K66.0 Peritoneal adhesions (postprocedural) (postinfection); C20 Malignant neoplasm of rectum; K21.9 Gastro-esophageal reflux disease without esophagitis; Z79.899 Other long term (current) drug therapy; Z87.891 Personal history of nicotine dependence
CPT/HCPCS: C1781; J0330; J0690; J1170; J2250; J2704; J3010

== ENCOUNTER → 2023-11-12 | Outpatient (CLI) | payer BC ==
[~2023-11-12] MED LIST changes: +CEFTIN500 MG PO; +CYMBALTA 30MG30 MG PO; +Iohexol 300 - 100 ML VIAL IV ONE; +MULTIPLE VITAMI1 CAP PO; +NS 100 ML IV SCH; +PREDFORTE5ML; +PROBIOTIC-10 370 MG PO
== END ==
LOC: COL.RAD 08:06
DX: N32.89 Other specified disorders of bladder (principal); C20 Malignant neoplasm of rectum
CPT/HCPCS: J1644; Q9967

== ENCOUNTER 2024-01-15 10:28 | Emergency (ER) | payer BC ==
[~2024-01-15] VITALS: Ht 177.8 cm; Wt 90.9 kg
[~2024-01-15 10:28] MED LIST changes: -Iohexol 300 - 100 ML VIAL IV ONE; -NS 100 ML IV SCH
[2024-01-15 10:32] VITALS: TEMP 98.6
[2024-01-15] MEDS ORDERED: NS 1,000 ML IV ONE (10:45)
[2024-01-15] MEDS ORDERED: Ondansetron 4 MG/2 ML VIAL IV ONE (11:15)
[2024-01-15 11:25] LABS: COLLECTION METHOD CLEAN CATCH
[2024-01-15 11:29] LABS: BASO % 0.5 % (0.0-2.0); EOS # 0.1 K/mm3 (0.0-0.7); EOS % 1.5 % (0.0-4.0); GRAN # 4.2 K/mm3 (1.4-6.5); GRAN % 71.6 % (42.2-75.2); HEMATOCRIT 44.6 % (37.0-47.0); HEMOGLOBIN 14.9 g/dl (12.5-16.0); LYMPH # 0.8 K/mm3 (1.2-3.4); LYMPH % 13.6 % (20.0-51.0); MEAN CELL VOLUME 94 fl (80.0-100.0); MEAN CORPUSCULAR HEMOGLOBIN 31 pg (27-31); MEAN CORPUSCULAR HGB CONC 33 g/dl (33.0-37.0); MEAN PLATELET VOLUME 12.8 fl (7.4-10.4); MONO # 0.7 K/mm3 (0.1-0.6); MONO % 12.6 % (1.7-9.3); PLATELET COUNT 207 K/mm3 (130-400); RED BLOOD COUNT 4.77 M/mm3 (4.10-5.30); REDCELL DISTRIBUTION WIDTH-CV 14.9 % (11.5-14.5)
[2024-01-15 11:46] LABS: PH 5.5 (5.0-8.5); URINE APPEARANCE CLOUDY (CLEAR/HAZY); URINE BLOOD 1+ (NEGATIVE); URINE COLOR Dark Yellow (YELLOW); URINE GLUCOSE NEGATIVE (NEGATIVE); URINE KETONE TRACE (NEGATIVE); URINE NITRATE NEGATIVE (NEGATIVE); URINE PROTEIN(semi-quant) 1+ (NEGATIVE)
[2024-01-15 12:04] LABS: ALBUMIN 3.7 g/dL (3.4-4.8); BILIRUBIN,TOTAL 0.9 mg/dL (0.2-1.2); CALCIUM 10.1 mg/dL (8.4-10.2); CREATININE, serum 0.9 mg/dL (0.57-1.11); POTASSIUM 3.9 mEq/L (3.5-4.5); TOTAL PROTEIN 7.9 g/dl (6.2-8.1)
[2024-01-15] MEDS ORDERED: Iohexol 300 - 100 ML VIAL IV ONE (12:46)
[2024-01-15] MEDS ORDERED: NS 100 ML IV SCH (12:47)
[2024-01-15] MEDS ORDERED: Ketorolac 30 MG/ML VIAL IV ONE (16:15)
[2024-01-15 18:00] VITALS: BP 132/65; PULSE 85
== END 2024-01-15 18:21 | disposition short-term general hospital (02) ==
LOC: COL.ER 10:28
PROVIDERS: Physician Assistant
DX: K56.609 Unspecified intestinal obstruction, unspecified as to partial versus complete obstruction (principal); Z87.891 Personal history of nicotine dependence
CPT/HCPCS: J1885; J2405; J7030; Q9967